=== PATIENT | male | born 1970 | race Caucasian/White ===

== ENCOUNTER 2017-09-15 15:19 | Emergency (ER) | payer OTHER ==
--- NOTE | 2017-09-15 15:55 | NUR ---
Pt stated he changed his mind and will see his own doctor.
== END 2017-09-15 15:56 | disposition left against medical advice (07) ==
LOC: ER 15:23
DX: Z53.21 Procedure and treatment not carried out due to patient leaving prior to being seen by health care provider (principal)

== ENCOUNTER 2017-09-16 08:30 | Emergency (ER) | payer OTHER ==
[~2017-09-16] VITALS: Ht 172.7 cm; Wt 74.8 kg
--- NOTE | 2017-09-16 08:55 | NUR ---
PT IS IN ROOM #2B. DR VALADEZ EVALUATED THE PT.
[2017-09-16 09:20] VITALS: BP 132/78
== END 2017-09-16 09:21 | disposition home or self-care (01) ==
LOC: ER 08:30
DX: S92.402A Displaced unspecified fracture of left great toe, initial encounter for closed fracture (principal); Z88.5 Allergy status to narcotic agent; W20.8XXA Other cause of strike by thrown, projected or falling object, initial encounter; Y93.89 Activity, other specified; Y92.89 Other specified places as the place of occurrence of the external cause; Y99.8 Other external cause status
CPT/HCPCS: 73630; 99284; A4663